=== PATIENT | female | born 1935 | race Caucasian/White ===

== ENCOUNTER 2018-03-25 00:21 | Emergency (ER) | payer MEDICARE, BC ==
[~2018-03-25] VITALS: Ht 154.9 cm; Wt 57.1 kg
[~2018-03-25 00:21] MED LIST: ALPHAGAN P10 ML OPHTHALMIC; ASPIRIN325 PO; AZOPT OPHTH1 %/10 M1 OPHTHALMIC; BUSPIRONE HCL7.5 MG PO; CALCIUM 600 +1 EAC1; CALCIUM 600 +1 EAC8 PO; CARISOPRODOL 3350 M1 PO; CARISOPRODOL 3350 MG PO; CELEXA 20 MG TA20 M1 PO; CENTRUM SILVER1 EAC1 PO; CENTRUM SILVER1 EAC3 PO; CENTRUM SILVER1 EAC4 PO; CIPRO250 M1; COLACE100 MG PO; COMBIGAN EYE DR10 ML OPHTHALMIC; CORTANE-B OTIC10 ML; COSOPT EYE DROPS5 ML OPHTHALMIC; CYMBALTA30 MG PO; FENTANYL 1100 MCG/HR; FENTANYL PA25 MCG/HR TP; FENTANYL PA50 MCG/HR TP; HYDROCODON-ACE1 EAC1 PO; HYDROCODONE-AP1 EACH PO; K-DUR10 ME1 PO; KLOR-CON 10 ER10 MEQ PO; KLOR-CON 1010 MEQ PO; LEVAQUIN 500 M500 M1 PO; MEDROL DOSPAK21 TAB PO; MIRALAX255 GM PO; MOBIC15 MG PO; MORPHINE SULFAT60 M1; MS CONTIN 30 MG30 M1 PO; MS CONTIN60 MG PO; NEURONTIN 300300 M1 PO; NEURONTIN600 MG PO; NORCO 5-325 TA1 EACH PO; NORCO 7.5-3251 EACH PO; OXYCODON-ACETA1 EAC1 PO; OXYCODONE HCL30 MG PO; OXYCONTIN30 MG PO; OXYIR 5 MG CAPSU5 M1 PO; PERCOCET 10-321 EACH; PERCOCET 10-321 EACH PO; PERCOCET 5-3251 EACH PO; PREDNISONE 10 M10 M1 PO; PROVENTIL HFA6.7 G1 INH; PROZAC 20 MG20 MG PO; RELAFEN500 MG PO; RESTORIL15 MG PO; RESTORIL30 MG PO; SLOW-MAG64 MG PO; TRAVATAN Z5 ML OPHTHALMIC; TYLENOL EX-STR500 M2 PO; XALATAN2.5 ML OPHTHALMIC; XANAX 0.5 MG0.5 M1 PO; XARELTO10 M1 PO; ZOFRAN ODT4 MG SUBLING; [UNRECOGNIZED DRUG - OTHER]
[2018-03-25 02:28] VITALS: BP 150/39
== END 2018-03-25 02:30 | disposition home or self-care (01) ==
LOC: M.ERS 00:21
DX: S01.01XA Laceration without foreign body of scalp, initial encounter (principal); M19.90 Unspecified osteoarthritis, unspecified site; Z90.49 Acquired absence of other specified parts of digestive tract; Z90.710 Acquired absence of both cervix and uterus; W06.XXXA Fall from bed, initial encounter; Y93.89 Activity, other specified; Y92.89 Other specified places as the place of occurrence of the external cause; Y99.8 Other external cause status

== ENCOUNTER 2020-02-04 14:52 | Inpatient (IN) | payer BC ==
[~2020-02-04] VITALS: Ht 154.9 cm; Wt 64.8 kg
--- NOTE | ~2020-02-04 | CON ---
[address] [address] CONSULTATION Name: MELVINA PARTIDA Room: [address] IN .R.#: [id number] Admission: 02/04/20 Attend Phys: Nanette Braswell Discharge: Date of : 39 Report #: [id number] THIS REPORT FOR: //name// cc: Shaw Saini Bradley L. DO ~ THIS REPORT FOR: //name// CC: Shaw Delatorre DATE OF SERVICE: 02/05/2020 REASON FOR CONSULT: Coffee-ground emesis, nausea, vomiting. HISTORY OF PRESENT ILLNESS: This is an 84-year-old female who lives alone. The patient reports that she was not feeling well and had symptoms of nausea, vomiting and her neighbor who checks on her once in a while, brought her to the hospital. The patient reports that she has never had any significant issues with her GI. She has BMs every other day and her last BM was today, which did not have any blood in it. NG tube has been placed and total of 1000 units of coffee-ground material was removed. The patient reports that she is feeling better and denies nausea. She also denies any abdominal pain. PAST MEDICAL HISTORY: Significant for history of chronic pain, arthritis, depression, migraines, history of lumbar surgery, degenerative joint disease, hysterectomy, chronic anticoagulation therapy, chronic pain. ALLERGIES: No known drug allergy. MEDICATIONS: Please refer to MAR. SOCIAL HISTORY: The patient lives alone with her cats. She has a neighbor who checks on her. She denies tobacco or alcohol use. FAMILY HISTORY: Noncontributory. PHYSICAL EXAMINATION: VITAL SIGNS: Reveal blood pressure of 153/85, respirations 24, pulse 115, temperature 98. LUNGS: Clear. CARDIOVASCULAR: Regular. ABDOMEN: Soft, nontender, nondistended. NEUROLOGIC: The patient is somewhat confused, but able to answer questions with some hesitation. LABORATORY DATA: Labs reveal sodium of 141, potassium is 3.0, BUN is 18, [place] [address] CONSULTATION Name: MELVINA PARTIDA Room: [address] IN [facility]#: [id number] Admission: 02/04/20 Attend Phys: Nanette Braswell Discharge: Date of : 37 Report #: [id number] creatinine 0.8, glucose 170, AST 19, ALT 14 with alkaline phosphatase of 67, total bilirubin is 0.5, albumin is 2.8. WBC is 9.9 with hemoglobin of 11.8 and platelet of 189. IMAGING: CT of abdomen and pelvis was obtained on admission. This is significant for markedly large hiatal hernia containing content of food stuck. There is evidence of cardiomegaly with coronary artery calcification. There is also colonic diverticulosis without evidence of diverticulitis. ASSESSMENT AND PLAN: The patient with symptoms of nausea, vomiting and coffee-ground emesis who has a NG tube in place and over 1000 mL of coffee-ground liquid has been removed. Her hemoglobin is 11 and she is hemodynamically stable. I will start her on Protonix drip and perform an upper endoscopy tomorrow. She also has low potassium that is being replaced. We will make further recommendation based on her upper endoscopy results. By: 1834 2034Abisai Cobian MD /nt
--- NOTE | ~2020-02-04 | PROC ---
[address] [address] PROCEDURE REPORT Name: MELVINA PARTIDA Room: [address] IN M.R.#: [id number] Admission: 02/04/20 Attend Phys: Nanette Braswell Discharge: 02/11/20 Date of : 39 Report #: [id number] THIS REPORT FOR: //name// cc: Shaw Saini Bradley L. DO ~ THIS REPORT FOR: //name// For GI report, please see the Provation report in Perceptive 7 content. By: 0652Medical Records Staff VLADISLAV /YUKO
[~2020-02-04 14:52] MED LIST changes: +AUGMENTIN 500-1 EACH PO; +FENTANYL PATCH75 MCG TRANSDERM; +KEFLEX500 M1 PO; +NEURONTIN 300M300 M2 PO; +NORCO 5-325 TA1 EAC2 PO
[2020-02-04 15:23] LABS: HEMATOCRIT 38.5 % (37.0-47.0); HEMOGLOBIN 13.2 gm/dL (12.0-15.0); MCH 32.1 pg (26.0-34.0); MCHC 34.2 g/dL (28.0-37.0); MCV 93.9 fL (80.0-100.0); MPV 9.6 fl. (7.2-11.1); NUCLEATED RBCS 0 /100WBC; PLATELET COUNT* 175 thou/uL (150-400); RDW-CV 14.8 % (10.5-14.5)
[2020-02-04 15:47] LABS: CALCIUM 8.9 mg/dL (8.5-10.1); CREATININE 0.7 mg/dL (0.6-1.3); POTASSIUM 3.4 mmol/L (3.5-5.1)
[2020-02-04 15:57] LABS: ALBUMIN 3.1 g/dL (3.4-5.0); TOTAL BILIRUBIN 0.6 mg/dL (<0.1-1.0); TOTAL PROTEIN 8.2 g/dL (6.4-8.2)
[2020-02-04 16:06] LABS: ABSOLUTE LYMPHOCYTES 0.7 thou/uL (0.8-5.3); ABSOLUTE MONOCYTES 0.2 thou/uL (0.0-1.2); ANISOCYTOSIS Occasional; PLATELET ESTIMATE ADEQUATE
[2020-02-04 17:10] LABS: URINE BLOOD NEGATIVE (Negative); URINE CLARITY CLEAR; URINE COLOR YELLOW; URINE GLUCOSE-RANDOM NEGATIVE (Negative); URINE KETONES 1+ (Negative); URINE LEUKOCYTES-REFLEX NEGATIVE (Negative); URINE NITRITE-REFLEX NEGATIVE (Negative); URINE PROTEIN 1+ (Negative); URINE SPECIFIC GRAVITY 1.015 (1.005-1.030)
[2020-02-04 17:11] LABS: ICTOTEST (BILI CONFIRMATORY) Positive (Negative); URINE BILIRUBIN 2+ (Negative)
[2020-02-04 20:20] VITALS: BP 168/80
[2020-02-05] VITALS: BP 201/79
[2020-02-05 00:55] VITALS: BP 192/101
[2020-02-05 07:24] LABS: ABSOLUTE LYMPHOCYTES 0.5 thou/uL (0.8-5.3); ABSOLUTE MONOCYTES 0.5 thou/uL (0.0-1.2); ABSOLUTE NEUTROPHILS 8.9 thou/uL (1.6-8.1); BASOPHILS 0.2 %; HEMATOCRIT 35.5 % (37.0-47.0); HEMOGLOBIN 12.2 gm/dL (12.0-15.0); LYMPHOCYTES 4.7 %; MCH 32.5 pg (26.0-34.0); MCHC 34.2 g/dL (28.0-37.0); MCV 94.9 fL (80.0-100.0); MONOCYTES 4.9 %; MPV 9.7 fl. (7.2-11.1); NUCLEATED RBCS 0 /100WBC; PLATELET COUNT* 189 thou/uL (150-400); POLYS 90.2 %; RBC 3.74 mil/uL (4.20-5.00); RDW-CV 14.8 % (10.5-14.5); WBC 9.9 thou/uL (4.0-11.0)
[2020-02-05 07:33] LABS: ALBUMIN 2.8 g/dL (3.4-5.0); CALCIUM 8.2 mg/dL (8.5-10.1); CREATININE 0.8 mg/dL (0.6-1.3); TOTAL BILIRUBIN 0.5 mg/dL (<0.1-1.0); TOTAL PROTEIN 7.6 g/dL (6.4-8.2)
[2020-02-05 08:00] VITALS: BP 157/92
--- NOTE | 2020-02-05 12:16 | EKG ---
[place] [address] ELECTROCARDIOGRAM REPORT Name: MELVINA PARTIDA Room: [address] ADM IN .R.#: [id number] Admission: 02/04/20 Attend Phys: Balbir Delatorre Discharge: Date of : 39 Date of Service: 02/04/20 1535 Report #: [id number] THIS REPORT FOR: //name// [facility] Test Date: 2020-02-04 Test Time: 15:35:23 Pat Name: MELVINA PARTIDA Department: Room: [address] Gender: F Assistant Toddler Teacher: LESIVA : 1935 Requested By: Jaret Laura Order Number: [id number] Collette MD: Luis M Umana Measurements Intervals [place] Rate: 86 P: 51 UT: 160 QRS: -3 QRSD: 108 T: -43 QT: 417 QTc: 499 Interpretive Statements Sinus rhythm Paired ventricular premature complexes Anteroseptal infarct, age indeterminate Baseline wander in lead(s) II,III,aVF Compared to ECG 03/13/2013 20:40:59 Ventricular premature complex(es) now present Myocardial infarct finding now present Electronically Signed On 02-05-2020 12:16:19 CDT by Luis M Umana [email or web address] <ELECTRONICALLY SIGNED> By: Luis M Umana MD, [facility] 02/05/20 1216 1535 1535 Luis M Umana MD, [facility] /EPI
[2020-02-05 12:46] VITALS: BP 153/85
[2020-02-05 17:00] VITALS: BP 153/62
[2020-02-05 20:00] VITALS: BP 144/77
[2020-02-06 06:05] LABS: ABSOLUTE LYMPHOCYTES 0.7 thou/uL (0.8-5.3); ABSOLUTE NEUTROPHILS 11.3 thou/uL (1.6-8.1); BASOPHILS 0.1 %; HEMATOCRIT 30.6 % (37.0-47.0); HEMOGLOBIN 10.2 gm/dL (12.0-15.0); LYMPHOCYTES 5.3 %; MCHC 33.4 g/dL (28.0-37.0); MONOCYTES 7.9 %; MPV 9.2 fl. (7.2-11.1); NUCLEATED RBCS 0 /100WBC; PLATELET COUNT* 173 thou/uL (150-400); POLYS 86.7 %; RBC 3.18 mil/uL (4.20-5.00); RDW-CV 14.7 % (10.5-14.5); WBC 13.1 thou/uL (4.0-11.0)
[2020-02-06 06:25] LABS: ALBUMIN 2.3 g/dL (3.4-5.0); CALCIUM 8.1 mg/dL (8.5-10.1); CREATININE 0.6 mg/dL (0.6-1.3); TOTAL BILIRUBIN 0.5 mg/dL (<0.1-1.0); TOTAL PROTEIN 6.4 g/dL (6.4-8.2)
[2020-02-06 06:26] LABS: POTASSIUM 4.4 mmol/L (3.5-5.1)
[2020-02-06 08:00] VITALS: BP 138/60
[2020-02-06 09:13] LABS: ALBUMIN 2.3 g/dL (3.4-5.0); DIRECT BILIRUBIN 0.1 mg/dL (<0.1-0.3); TOTAL BILIRUBIN 0.4 mg/dL (<0.1-1.0); TOTAL PROTEIN 6.4 g/dL (6.4-8.2)
[2020-02-06 12:05] VITALS: BP 138/60
[2020-02-06 16:19] VITALS: BP 161/85
[2020-02-06 20:50] VITALS: BP 148/88
[2020-02-07] VITALS (7 sets, daily range): BP systolic 120–150; BP diastolic 58–98
[2020-02-07 04:32] LABS: ABSOLUTE NEUTROPHILS 7.4 thou/uL (1.6-8.1); BASOPHILS 0.2 %; EOSINOPHILS 0.5 %; HEMATOCRIT 28.6 % (37.0-47.0); HEMOGLOBIN 9.9 gm/dL (12.0-15.0); LYMPHOCYTES 10.9 %; MCH 32.7 pg (26.0-34.0); MCHC 34.4 g/dL (28.0-37.0); MONOCYTES 10.7 %; MPV 9.1 fl. (7.2-11.1); NUCLEATED RBCS 0 /100WBC; PLATELET COUNT* 180 thou/uL (150-400); POLYS 77.7 %; RBC 3.01 mil/uL (4.20-5.00); RDW-CV 14.5 % (10.5-14.5); WBC 9.5 thou/uL (4.0-11.0)
[2020-02-07 04:51] LABS: ALBUMIN 1.9 g/dL (3.4-5.0); CREATININE 0.6 mg/dL (0.6-1.3); TOTAL BILIRUBIN 0.4 mg/dL (<0.1-1.0); TOTAL PROTEIN 5.6 g/dL (6.4-8.2)
[2020-02-07 04:54] LABS: POTASSIUM 3.4 mmol/L (3.5-5.1)
--- NOTE | 2020-02-07 14:33 | CON ---
[address] [address] CONSULTATION Name: MELVINA PARTIDA Room: [address] IN M.R.#: [id number] Admission: 02/04/20 Attend Phys: Nanette Braswell Discharge: Date of : 39 Report #: [id number] THIS REPORT FOR: //name// cc: Shaw Saini Bradley L. DO THIS REPORT FOR: //name// CC: Shaw Pierce DATE OF SERVICE: 02/07/2020 CARDIOLOGY CONSULTATION HISTORY OF PRESENT ILLNESS: The patient is an 84-year-old single white female who I was asked to see in the hospital today after she complained of chest pain. The patient apparently has no history of heart disease. She has had several hospitalizations here at [place] in the past. She had an EGD done here last week that showed a Zenker's diverticulum, esophagitis, hiatal hernia and she was placed on Carafate. The patient was admitted to the hospital 02/04/2020 by family members. She complained of vomiting, some epigastric discomfort. She is felt to have gastroenteritis. Today, the patient was noted to be hypoxic. There is concerned she may have aspirated. Cardiology consultation requested. She does note some chest pain. She denied any shortness of breath, palpitations, lightheadedness. PAST MEDICAL HISTORY: She has had a previous hysterectomy, ankle fusion, knee surgery. MEDICATIONS: On admission included Xarelto, aspirin, fentanyl, Neurontin, Prozac. ALLERGIES: No known drug allergies. FAMILY HISTORY: Positive for heart disease. SOCIAL HISTORY: She is , lives by herself. No smoking or alcohol abuse. REVIEW OF SYSTEMS: No history of stroke, asthma, liver disease, kidney disease, cancer, psychiatric illness, chronic skin condition. PHYSICAL EXAMINATION: GENERAL: Revealed an elderly, frail-appearing female. She appeared in moderate distress secondary to epigastric pain. CURRENT VITAL SIGNS: She had a blood pressure 140/90, pulse [place] 90[place] [address] CONSULTATION Name: MELVINA PARTIDA Room: [address]#: [id number] Admission: 02/04/20 Attend Phys: Nanette Braswell Discharge: Date of : 37 Report #: [id number] afebrile. HEENT: She is anicteric. Conjunctivae pink. Mucous membranes moist. NECK: Veins do not appear distended. CHEST: Clear to auscultation. CARDIOVASCULAR: Regular rate and rhythm. ABDOMEN: Soft. EXTREMITIES: Had no edema. SKIN: Cool and dry. NEUROLOGIC: She is very slow moving. RADIOLOGICAL DATA: Her ECG shows a sinus rhythm. There are nonspecific T-wave changes and compared to ECG on admission, there is no longer PVCs noted. The patient had a portable chest x-ray on admission 3 days ago that showed cardiomegaly, otherwise clear lung irwin, previous CT scan of the head in January of 2019 after a fall showed evidence of previous lacunar infarction. LABORATORY WORK: Sodium 137, potassium 3.7, creatinine 0.6, albumin 1.9. Troponins are all 0.06. Her white blood cell count 9.5, hemoglobin is 9.9, it was 7.9 in 2013. IMPRESSION AND RECOMMENDATIONS: 1. Chest pain. Atypical for angina. No ECG changes. Recommend a conservative approach. 2. Epigastric pain. Suspect gastroenteritis. 3. Hiatal hernia. 4. Anemia. No history of bleeding. 5. Protein malnutrition. 6. History of vomiting. Reason unclear. No history of an acute abdomen. 7. History of Xarelto. No previous history of blood clots. <ELECTRONICALLY SIGNED> By: Luis M Umana MD, [facility] 02/07/20 1433 1413 1431Dsaravanan Umana MD, FACC /nt
[2020-02-08] VITALS: BP 146/69
[2020-02-08 04:00] VITALS: BP 86/60
[2020-02-08 05:15] LABS: HEMATOCRIT 28.6 % (37.0-47.0); HEMOGLOBIN 9.9 gm/dL (12.0-15.0); MCH 32.6 pg (26.0-34.0); MCHC 34.5 g/dL (28.0-37.0); MCV 94.4 fL (80.0-100.0); MPV 9.6 fl. (7.2-11.1); RBC 3.03 mil/uL (4.20-5.00); RDW-CV 14.1 % (10.5-14.5); WBC 6.3 thou/uL (4.0-11.0)
[2020-02-08 05:58] LABS: ANION GAP 4 mmol/L (7-16); BUN 16 mg/dL (7-18); CALCIUM 8.2 mg/dL (8.5-10.1); CHLORIDE 105 mmol/L (98-107); CHOLESTEROL 108 mg/dL (<200); CO2 29 mmol/L (21-32); CREATININE 0.6 mg/dL (0.6-1.3); GLUCOSE 124 mg/dL (70-99); HDL CHOLESTEROL 34 mg/dL (>40); LDL CHOLESTEROL 62 mg/dL (<100); POTASSIUM 3.8 mmol/L (3.5-5.1); SODIUM 138 mmol/L (136-145); TC:HDL 3.2 Ratio (Not establshd); TRIGLYCERIDE 62 mg/dL (<150); VLDL 12 mg/dL (<40)
[2020-02-08 05:59] LABS: SERUM ASSESSMENT Clear
[2020-02-08 08:00] VITALS: BP 159/91
[2020-02-08 11:27] VITALS: BP 164/83
[2020-02-08 16:09] VITALS: BP 158/77
[2020-02-08 20:00] VITALS: BP 160/78
[2020-02-09] VITALS: BP 132/66
[2020-02-09 04:13] VITALS: BP 171/65
[2020-02-09 04:54] LABS: ABSOLUTE EOSINOPHILS 0.1 thou/uL (0.0-0.7); ABSOLUTE LYMPHOCYTES 1.3 thou/uL (0.8-5.3); ABSOLUTE MONOCYTES 1.1 thou/uL (0.0-1.2); ABSOLUTE NEUTROPHILS 5.6 thou/uL (1.6-8.1); BASOPHILS 0.1 %; EOSINOPHILS 1.4 %; HEMATOCRIT 30.2 % (37.0-47.0); HEMOGLOBIN 10.5 gm/dL (12.0-15.0); LYMPHOCYTES 15.6 %; MCH 32.6 pg (26.0-34.0); MCHC 34.7 g/dL (28.0-37.0); MCV 93.7 fL (80.0-100.0); MONOCYTES 13.2 %; MPV 9.2 fl. (7.2-11.1); NUCLEATED RBCS 0 /100WBC; PLATELET COUNT* 200 thou/uL (150-400); POLYS 69.7 %; RBC 3.22 mil/uL (4.20-5.00)
[2020-02-09 05:01] LABS: CALCIUM 7.8 mg/dL (8.5-10.1); CREATININE 0.5 mg/dL (0.6-1.3); TOTAL BILIRUBIN 0.3 mg/dL (<0.1-1.0); TOTAL PROTEIN 5.7 g/dL (6.4-8.2)
[2020-02-09 05:03] LABS: POTASSIUM 2.7 mmol/L (3.5-5.1)
[2020-02-09 07:30] VITALS: BP 126/76
[2020-02-09 11:51] VITALS: BP 143/65
--- NOTE | 2020-02-09 15:31 | EKG ---
[place] [address] ELECTROCARDIOGRAM REPORT Name: MELVINA PARTIDA Room: [address] ADM IN [facility].#: [id number] Admission: 02/04/20 Attend Phys: Balbir Delatorre Discharge: Date of : 39 Date of Service: 02/07/20 1240 Report #: [id number] THIS REPORT FOR: //name// [facility] Test Date: 2020-02-07 Test Time: 12:40:07 Pat Name: MELVINA PARTIDA Department: Room: [facility] Gender: F Lead Pressman: KAYE : 1935 Requested By: Balbir Delatorre Order Number: [id number] Collette MD: Ozzie Way Measurements Intervals [place] Rate: 83 P: 31 CO: 140 QRS: -21 QRSD: 93 T: -6 QT: 350 QTc: 412 Interpretive Statements Sinus rhythm Borderline left axis deviation Low voltage, extremity and precordial leads Possible anteroseptal scar RSR' in V1 or V2, probably normal variant Baseline wander in lead(s) V1,V2,V3 Compared to ECG 02/04/2020 15:35:23 Low QRS voltage now present RSR' in V1 or V2 now present Ventricular premature complex(es) no longer present Myocardial infarct finding persists Electronically Signed On 02-09-2020 15:31:[address] [email or web address] <ELECTRONICALLY SIGNED> By: Ozzie Way MD, [facility] 02/09/[address] MD, [facility] /EPI
--- NOTE | 2020-02-09 15:31 | EKG ---
[place] [address] ELECTROCARDIOGRAM REPORT Name: MELVINA PARTIDA Room: [address] ADM IN M.R.#: [id number] Admission: 02/04/20 Attend Phys: Balbir Delatorre Discharge: Date of : 39 Date of Service: 02/07/20 1241 Report #: [id number] THIS REPORT FOR: //name// [facility] Test Date: 2020-02-07 Test Time: 12:41:23 Pat Name: MELVINA PARTIDA Department: Room: [address] Gender: F Crusher [employer] [place]: [place] : 1935 Requested By: Balbir Delatorre Order Number: [id number] Reading MD: Ozzie Way Measurements Intervals [place] Rate: 86 P: 37 MS: 138 QRS: -23 QRSD: 96 T: -15 QT: 347 QTc: 415 Interpretive Statements Sinus rhythm Borderline left axis deviation Low voltage, extremity and precordial leads Possible anteroseptal scar Baseline wander in lead(s) V2 Compared to ECG 02/07/2020 12:40:07 No significant changes Electronically Signed On 02-09-2020 15:31:[address] [email or web address] <ELECTRONICALLY SIGNED> By: Ozzie Way MD, FAC 02/09/[address] MD, FAC /EPI
--- NOTE | 2020-02-09 15:35 | EKG ---
[place] [address] ELECTROCARDIOGRAM REPORT Name: MELVINA PARTIDA Room: [address] ADM IN M.R.#: [id number] Admission: 02/04/20 Attend Phys: Balbir Delatorre Discharge: Date of : 39 Date of Service: 02/08/20 0841 Report #: [id number] THIS REPORT FOR: //name// [facility] Test Date: 2020-02-08 Test Time: 08:41:16 Pat Name: MELVINA PARTIDA Department: Room: [address] Gender: F Adjunct Instructor Chemistry: AO : 1935 Requested By: Luis M Umana Order Number: [id number] Collette MD: Ozzie Way Measurements Intervals [place] Rate: 79 P: 57 [place]: 139 QRS: 16 QRSD: 103 T: 8 QT: 371 QTc: 426 Interpretive Statements Sinus rhythm Low voltage, extremity and precordial leads Baseline wander in lead(s) V6 Compared to ECG 02/07/2020 12:41:23 No significant changes Electronically Signed On 02-09-2020 15:35:[address] [email or web address] <ELECTRONICALLY SIGNED> By: Ozzie Way MD, [facility] 02/09/[address] MD, [facility] /EPI
[2020-02-09 16:02] VITALS: BP 129/38
--- NOTE | 2020-02-09 17:06 | PATH ---
[address] [address] PATHOLOGY RPT PROCEDURE Name: IRIS HARRIS Room: [address] IN M.R.#: [id number] Admission: 02/04/20 Date of : 39 Discharge: Report #: [id number] Path Case #: [id number] [facility] Accession Number: [id number] . 01 Material submitted: . gastrointestinal site - GASTRIC ULCER BIOPSY . 01 Clinician provided ICD-10: K92.2 J69.0 . 01 Frozen section diagnosis: . . /QLM . 02 Diagnosis: Gastric ulcer biopsy: - Moderate nonspecific chronic gastritis with prominent intestinal metaplasia, negative for Helicobacter pylori organisms and dysplasia. (See comment) . (RITA:justin; 02/09/2020) QLM 02/09/2020 1311 Local . 02 Comment: One of the fragments is suggestive of duodenal mucosa. . Special stain: H. pylori immuno. . (RITA:mml; 02/09/2020) . 02 Electronically signed: . Abhilash España MD, Pathologist NPI- [id number] . 01 Gross description: . The specimen is received in formalin, labeled "Iris Harris, gastric ulcer biopsy" and consists of 2 fragments of wiggins tissue measuring 0.6 x 0.2 x 0.2 cm in aggregate which are entirely submitted in A1. ([facility]; 02/08/2020) JFQ/JFQ 02/08/2020 1421 Local . 02 Pathologist provided ICD-10: K29.50 . 02 CPT . 587328, K77880 Specimen Comment: A courtesy copy of this report has been sent to [phone] [address] PATHOLOGY RPT PROCEDURE Name: IRIS HARRIS Room: [address]#: [id number] Admission: 02/04/20 Date of : 39 Discharge: Report #: [id number] Path Case #: [id number] Specimen Comment: Report sent to Performed at: 01 [facility] [address], [place] [id number] MD Israel Do MD Phone: [phone] Performed at: 02 [facility] [address] [place], [place] [id number] MD Abhilash España MD Phone: [phone]
[2020-02-09 19:30] VITALS: BP 125/54
[2020-02-10 01:45] VITALS: BP 149/59
[2020-02-10 04:35] VITALS: BP 118/44
[2020-02-10 06:06] LABS: CALCIUM 7.9 mg/dL (8.5-10.1); CREATININE 0.7 mg/dL (0.6-1.3); POTASSIUM 4.6 mmol/L (3.5-5.1)
[2020-02-10 07:20] VITALS: BP 134/109
[2020-02-10 07:53] LABS: URINE BILIRUBIN NEGATIVE (Negative); URINE BLOOD NEGATIVE (Negative); URINE CLARITY CLEAR; URINE COLOR YELLOW; URINE GLUCOSE-RANDOM NEGATIVE (Negative); URINE KETONES NEGATIVE (Negative); URINE LEUKOCYTES-REFLEX NEGATIVE (Negative); URINE NITRITE-REFLEX NEGATIVE (Negative); URINE PROTEIN NEGATIVE (Negative)
--- NOTE | 2020-02-10 09:58 | 2DMMODE ---
[place] [address] 2 D/M-MODE ECHOCARDIOGRAM Name: MELVINA PARTIDA Kian Room: [address] IN [facility]#: [id number] Admission: 02/04/20 Attend Phys: Balbir Delaotrre Discharge: Date of : 39 Date of Service: 02/10/20 0957 Report #: [id number] THIS REPORT FOR: cc: Shaw Saini Bradley L. DO Liston, Michael J. MD [facility] ~ APPROVED REPORT Study performed: 02/09/2020 13:49:07 EXAM: Comprehensive 2D, Doppler, and color-flow Echocardiogram Patient Location: In-Patient Room #: [facility] Status: routine BSA: 1.55 HR: 108 bpm BP: 171/65 mmHg Rhythm: NSR Other Information Study Quality: Good Indications Chest Pain 2D Dimensions IVSd: 9.41 (7-11mm) LVOT Diam: 21.33 (18-24mm) LVDd: 44.72 mm PWd: 9.22 (7-11mm) Ascending Ao: 31.85 (22-36mm) LVDs: 15.05 (25-40mm) Aortic Root: 33.86 mm Volumes Left Atrial Volume (Systole) LA ESV Index: 42.80 mL/m2 Aortic Valve AoV Peak Jimmie.: 1.47 m/s AO Peak Gr.: 8.60 mmHg LVOT Max P.39 mmHg AO Mean Gr.: 5.19 mmHg LVOT Mean P.47 mmHg LVOT Max V: 1.53 m/s AO V2 VTI: 24.04 cm LVOT Mean V: 0.96 m/s OSEI (VTI): 3.66 cm2 LVOT V1 VTI: 24.60 [place] [address] 2 D/M-MODE ECHOCARDIOGRAM Name: MELVINA PARTIDA Room: [address]#: [id number] Admission: 02/04/20 Attend Phys: Balbir Delatorre Discharge: Date of : 39 Date of Service: 02/10/20 0957 Report #: [id number] Mitral Valve E/A Ratio: 0.81 MV Decel. Time: 213.41 ms MV E Max Jimmie.: 0.84 m/s MV PHT: 61.89 ms MVA (PHT): 3.55 cm2 TDI E/Lateral E': 8.40 Lateral E' Jimmie.: 0.10 m/s Pulmonary Valve PV Peak Jimmie.: 1.02 m/s PV Peak Gr.: 4.15 mmHg Tricuspid Valve RAP Estimate: 5.00 mmHg TR Peak Gr.: 54.42 mmHg RVSP: 59.00 mmHg PA Pressure: 59.00 mmHg Left Ventricle The left ventricle is normal size. There is normal LV segmental wall motion. There is normal left ventricular wall thickness. Left ventricular systolic function is hyperdynamic. LVEF is >70%. Grade I - abnormal relaxation pattern. Right Ventricle Right ventricle is moderately dilated. The right ventricular systolic function is normal. Atria Left atrium is severely dilated. Right atrium is severely dilated. Aortic Valve The aortic valve is normal in structure. No aortic regurgitation is present. There is no aortic valvular stenosis. Mitral Valve The mitral valve is normal in structure. There is no mitral valve regurgitation noted. No evidence of mitral valve stenosis. Tricuspid Valve The tricuspid valve is normal in structure. Moderate to severe tricuspid regurgitation. Moderate pulmonary hypertension. [place] [address] 2 D/M-MODE ECHOCARDIOGRAM Name: PARTIDAMELVINA Room: [address]#: [id number] Admission: 02/04/20 Attend Phys: Balbir Delatorre Discharge: Date of : 39 Date of Service: 02/10/20 0957 Report #: [id number] The pulmonary valve is normal in structure. Mild pulmonic regurgitation. Great Vessels The aortic root is normal in size. IVC is normal in size and collapses >50% with inspiration. Pericardium There is no pericardial effusion. <Conclusion> The left ventricle is normal size. There is normal left ventricular wall thickness. Left ventricular systolic function is hyperdynamic. LVEF is >70%. Grade I - abnormal relaxation pattern. Right ventricle is moderately dilated. Left atrium is severely dilated. Right atrium is severely dilated. Moderate to severe tricuspid regurgitation. Moderate pulmonary hypertension. IVC is normal in size and collapses >50% with inspiration. <ELECTRONICALLY SIGNED> By: Robert Mancera MD, FACC 02/10/20 0957 0957 0957 Robert Mancera MD, FACC /INF
[2020-02-10 12:47] VITALS: BP 141/92
[2020-02-10 16:00] VITALS: BP 137/69
[2020-02-10 20:00] VITALS: BP 143/69
[2020-02-11] VITALS: BP 107/38
[2020-02-11 04:00] VITALS: BP 110/39
[2020-02-11 05:29] LABS: CALCIUM 7.7 mg/dL (8.5-10.1); CREATININE 0.5 mg/dL (0.6-1.3); POTASSIUM 3.9 mmol/L (3.5-5.1)
[2020-02-11] MEDS ORDERED: ZOFRAN4 MG PO (07:06)
[2020-02-11] MEDS ORDERED: CLONIDINE1 EACH TRANSDERM (07:06)
[2020-02-11] MEDS ORDERED: FENTANYL PATCH75 MCG TRANSDERM (07:06)
[2020-02-11] MEDS ORDERED: PROTONIX40 M1 PO (07:06)
[2020-02-11] MEDS ORDERED: PROZAC20 MG PO (07:06)
[2020-02-11] MEDS ORDERED: LASIX 40 MG TAB40 MG PO (07:06)
[2020-02-11] MEDS ORDERED: CARAFATE 11 GM/10 M1 PO (07:06)
[2020-02-11] MEDS ORDERED: HYDROCODON-ACE1 EAC7 PO (07:06)
[2020-02-11] MEDS ORDERED: TRANSDERM-SCOP1 EACH TRANSDERM (07:06)
[2020-02-11] MEDS ORDERED: RESTORIL30 MG PO ×2 (07:06→08:32)
[2020-02-11] MEDS ORDERED: PHENERGAN 25 MG25 M1 PO (07:06)
[2020-02-11 08:00] VITALS: BP 140/49
[2020-02-11] MEDS ORDERED: IPRAT-ALBUT 0.5-3 ML INH (08:32)
[2020-02-11] MEDS ORDERED: LEVAQUIN 500 M500 M2 PO (08:36)
[2020-02-11 14:00] VITALS: BP 140/49
== END 2020-02-11 16:28 | DRG 177 ==
LOC: M.ERS 14:52 → M.TBA-ER 17:28 → M.2W 17:28 → M.ORTHSURG 17:28 → M.2W 02-07 13:35
PROVIDERS: Emergency Medicine; Internal Medicine Cardiovascular Disease; Internal Medicine Gastroenterology; Registered Nurse; ADMIT Internal Medicine; ATTEND Internal Medicine
PROC: 0DH673Z Insertion of Infusion Device into Stomach, Via Natural or Artificial Opening (ICD-10-PCS; principal; 2020-02-05)
PROC: 0DB68ZX Excision of Stomach, Via Natural or Artificial Opening Endoscopic, Diagnostic (ICD-10-PCS; 2020-02-06)
DX: J69.0 Pneumonitis due to inhalation of food and vomit (principal); K25.4 Chronic or unspecified gastric ulcer with hemorrhage; I50.33 Acute on chronic diastolic (congestive) heart failure; R65.10 Systemic inflammatory response syndrome (SIRS) of non-infectious origin without acute organ dysfunction; D68.9 Coagulation defect, unspecified; E44.0 Moderate protein-calorie malnutrition; G89.29 Other chronic pain; M19.90 Unspecified osteoarthritis, unspecified site; F32.9 Major depressive disorder, single episode, unspecified; K44.9 Diaphragmatic hernia without obstruction or gangrene; I20.9 Angina pectoris, unspecified; D64.9 Anemia, unspecified; E86.0 Dehydration; G43.909 Migraine, unspecified, not intractable, without status migrainosus; K59.00 Constipation, unspecified; E87.6 Hypokalemia; K22.5 Diverticulum of esophagus, acquired; K21.0 Gastro-esophageal reflux disease with esophagitis; I11.0 Hypertensive heart disease with heart failure; I48.91 Unspecified atrial fibrillation; Z79.01 Long term (current) use of anticoagulants; Z90.710 Acquired absence of both cervix and uterus; Z98.1 Arthrodesis status; Z79.82 Long term (current) use of aspirin; Z68.27 Body mass index [BMI] 27.0-27.9, adult; Z79.891 Long term (current) use of opiate analgesic; Z79.899 Other long term (current) drug therapy; Z03.818 Encounter for observation for suspected exposure to other biological agents ruled out; Z20.828 Contact with and (suspected) exposure to other viral communicable diseases